=== PATIENT | male | born 1970 | race Caucasian/White ===

== ENCOUNTER 2018-09-22 16:00 | Inpatient (IN) | payer MEDICAID ==
[~2018-09-22] VITALS: Ht 177.8 cm; Wt 71.7 kg
[2018-09-22 16:03] VITALS: BP_SYST 130
[2018-09-22] MEDS ORDERED: NACL 0.9% 1,000 ML IV ONE (16:09)
--- NOTE | 2018-09-22 16:09 | NUR ---
Patient to ER bed 4 to gown for evaluation. Side rails up. Report given to Ishan JARRETT.
--- NOTE | 2018-09-22 16:14 | NUR ---
Patient is awake, alert, and oriented x4. Patient reports drinking whiskey all day and is now complaining of left lower quadrant abdominal pain.
--- NOTE | 2018-09-22 16:14 | NUR ---
ER Dr. Clark at bedside examining patient.
[2018-09-22] MEDS ORDERED: NS 1000 ML IV.SOLN IV ONE (16:15)
[2018-09-22] MEDS ORDERED: ONDANSETRON HCL 4 MG/2 ML VIAL IVP ONE (16:15)
[2018-09-22] MEDS ORDERED: FOLIC ACID 1 MG, THIAMINE HCL 100 MG, MAGNESIUM SULFATE 1 GM, MVI 10 ML in NACL 0.9% 1,... IV ONE (16:15)
[2018-09-22] MEDS ORDERED: MORPHINE 4 MG/ML INJ. SYRINGE IVP ONE (16:15)
[2018-09-22 16:42] LABS: BASOPHILS # (AUTO) 0.1 K/uL (0.0-0.2); EOSINOPHILS # (AUTO) 0.2 K/uL (0.0-0.4); EOSINOPHILS % (AUTO) 2.7 % (0.0-4.0); HEMATOCRIT 38.9 % (36-54); HEMOGLOBIN 13.1 g/dL (14.0-18.0); LYMPHOCYTES % (AUTO) 35.6 % (20.5-51.5); MEAN CORPUSCULAR HEMOGLOBIN 32 pg (27-31); MEAN CORPUSCULAR HGB CONC 34 % (32-36); MEAN CORPUSCULAR VOLUME 94 fL (79.0-98.0); MONOCYTES # (AUTO) 0.5 K/uL (0.0-1.0); MONOCYTES % (AUTO) 8.5 % (1.7-9.3); NEUTROPHILS # (AUTO) 2.9 K/uL (1.8-7.7); NEUTROPHILS % (AUTO) 51.2 % (40.0-70.0); PLATELET COUNT (AUTO) 147 K/uL (130-430); RED BLOOD CELL COUNT(AUTO) 4.14 MIL/uL (4.2-6.2); RED CELL DISTRIBUTION WIDTH 13.7 % (9.0-15.0); WHITE BLOOD COUNT (AUTO) 5.6 K/uL (4.8-10.8)
[2018-09-22 16:50] LABS: CALCIUM 8.8 mg/dL (8.4-11.0); CREATININE 0.9 mg/dL (0.55-1.30); POTASSIUM 3.2 mmol/L (3.5-5.1)
--- NOTE | 2018-09-22 16:50 | NUR ---
Spoke with Silvia in pharmacy, she states she will mix the banana bag.
[2018-09-22 16:52] LABS: METHAMPHETAMINES SCREEN,URINE POSITIVE (NEG <=500); URINE AMPHETAMINE POSITIVE (NEG <=500)
[2018-09-22 16:53] LABS: BARBITURATE, URINE NEGATIVE (NEG <=200); BENZODIAZEPINE, URINE NEGATIVE (NEG <=150); CANNABINOID, URINE NEGATIVE (NEG <=50); COCAINE, URINE NEGATIVE (NEG <=150); OPIATE, URINE NEGATIVE (NEG <=100); PHENCYCLIDINE SCREEN,URINE NEGATIVE (NEG <=25); UR TRICYCLIC ANTIDEPRESSANTS NEGATIVE (NEG <=300); URINE METHADONE NEGATIVE (NEG <=200); URINE OXYCODONE SCREEN NEGATIVE (NEG <=100); URINE PROPOXYPHENE SCREEN NEGATIVE (NEG <=300)
--- NOTE | 2018-09-22 16:58 | NUR ---
Patient to be transferred by [facility]. ETA [id number]. Called Christine in [facility] and informed her.
[2018-09-22 17:02] LABS: TOTAL BILIRUBIN 1.4 mg/dL (0.0-1.0)
--- NOTE | 2018-09-22 17:21 | NUR ---
Unable to complete medication reconcilliation. Patient will not respond to questions.
--- NOTE | 2018-09-22 17:28 | NUR ---
Patient will be admitted to care of Dr. Lira. Admitted to medsurg unit. Will go to room 120B. Belongings list completed. Summary report printed. Report will be given at bedside.
--- NOTE | 2018-09-22 17:28 | NUR ---
Report called in to LUIZA Dodge.
[2018-09-22] MEDS: FOLIC ACID 1 MG, THIAMINE HCL 100 MG, MAGNESIUM SULFATE 1 GM, MVI 10 ML in NACL 0.9% 1,... IV SCH (17:30)
[2018-09-22 17:36] VITALS: BP_SYST 109
--- NOTE | 2018-09-22 17:36 | NUR ---
admission: Received from ER on a gurney with the diagnosis of Acute Pancreatitis , Alcohol Intoxication. Patient is asleep when received, too sleepy to answer questions. Safety precautions initiated.
--- NOTE | 2018-09-22 17:44 | NUR ---
Patient transferred to room 120A via [place] with RN, 2 RN students. Bedside report given to LUIZA Flores for continuation of care.
[2018-09-22] MEDS ORDERED: chlordiazePOXIDE HCL 25 MG CAPSULE PO PRN (18:15)
[2018-09-22] MEDS ORDERED: ONDANSETRON HCL 4 MG/2 ML VIAL IVP PRN (18:15)
--- NOTE | 2018-09-22 19:05 | NUR ---
OPENING NOTES RECEIVED PATIENT IN BED ASLEEP. BREATHING UNLABORED ON 02 2LNC. IVF INFUSING ORDERED WITH IV LINE INTACT. BED IN LOWEST LOCKED POSITION. BED ALARM ON. CALL LIGHT WITH IN REACH.
[2018-09-22] MEDS: PANTOPRAZOLE SODIUM 40 MG/VIAL (PROTONIX) IVP SCH (21:26)
--- NOTE | 2018-09-22 21:26 | NUR ---
MED PASS PATIENT DUE MEDICATION GIVEN. NO DISTRESS NOTED.
[2018-09-23 00:25] VITALS: BP_SYST 107
--- NOTE | 2018-09-23 00:30 | NUR ---
ROUNDS PATIENT RESTING IN BED. NO DISTRESS NOTED. VITAL SIGNS STABLE.
[2018-09-23] MEDS ORDERED: THIAMINE HCL 100 MG/ML VIAL ONE (01:13)
[2018-09-23] MEDS ORDERED: MAGNESIUM SULFATE 1 GM/2 ML VIAL ONE (01:13)
[2018-09-23] MEDS ORDERED: FOLIC ACID 5 MG/ML VIAL IV ONE (01:14)
[2018-09-23] MEDS ORDERED: MVI 10 ML VIAL IV ONE (01:14)
[2018-09-23] MEDS: FOLIC ACID 1 MG, THIAMINE HCL 100 MG, MAGNESIUM SULFATE 1 GM, MVI 10 ML in NACL 0.9% 1,... IV SCH ×2 (02:11→07:02)
--- NOTE | 2018-09-23 03:57 | NUR ---
ROUNDS PATIENT RESTING IN BED. BREATHING UNLABORED. IVF INFUSING ORDERED.
--- NOTE | 2018-09-23 05:56 | NUR ---
ROUNDS PATIENT CONDITION UNCHANGED. NO DISTRESS NOTED. CALL LIGHT WITH IN REACH.
[2018-09-23 06:12] LABS: BASOPHILS # (AUTO) 0.1 K/uL (0.0-0.2); BASOPHILS % (AUTO) 1.2 % (0.0-2.0); EOSINOPHILS # (AUTO) 0.2 K/uL (0.0-0.4); HEMATOCRIT 34.9 % (36-54); HEMOGLOBIN 11.6 g/dL (14.0-18.0); LYMPHOCYTES % (AUTO) 23.8 % (20.5-51.5); MEAN CORPUSCULAR HEMOGLOBIN 31 pg (27-31); MEAN CORPUSCULAR HGB CONC 33 % (32-36); MEAN CORPUSCULAR VOLUME 94 fL (79.0-98.0); MONOCYTES # (AUTO) 0.3 K/uL (0.0-1.0); MONOCYTES % (AUTO) 7.9 % (1.7-9.3); NEUTROPHILS # (AUTO) 2.7 K/uL (1.8-7.7); NEUTROPHILS % (AUTO) 63.1 % (40.0-70.0); RED CELL DISTRIBUTION WIDTH 13.8 % (9.0-15.0); WHITE BLOOD COUNT (AUTO) 4.3 K/uL (4.8-10.8)
--- NOTE | 2018-09-23 06:18 | NUR ---
CLOSING NOTES PATIENT RESTING IN BED. NO DISTRESS NOTED. IVF INFUSING CONTINUOUSLY ORDERED WITH IV LINE INTACT. BED IN LOWEST LOCKED POSITION WITH ALARM ON. CALL LIGHT WITH IN REACH.
[2018-09-23 06:40] LABS: CALCIUM 7.4 mg/dL (8.4-11.0); CREATININE 0.46 mg/dL (0.55-1.30); POTASSIUM 3.3 mmol/L (3.5-5.1)
--- NOTE | 2018-09-23 07:15 | NUR ---
Opening Note: Patient in bed resting. Patient denies pain and discomfort. Breathing is even and unlabored with no distress noted. IV banana bag infusing with no signs of infiltration. Safety precautions in place; bed in lowest position, wheels locked, side rails x3, bed alarm activated and call light within reach. No needs at this time. Will continue to monitor.
[2018-09-23 08:36] LABS: PLATELET COUNT (AUTO) 108 K/uL (130-430)
[2018-09-23 08:42] VITALS: BP_SYST 141
[2018-09-23] MEDS: PANTOPRAZOLE SODIUM 40 MG/VIAL (PROTONIX) IVP SCH ×2 (08:43→21:48)
[2018-09-23] MEDS: ENOXAPARIN SODIUM 40 MG/0.4 ML SYRINGE SUBCUT SCH (08:44)
--- NOTE | 2018-09-23 10:37 | NUR ---
Rounds: Patient in bed resting. No distress noted. Will continue to monitor.
--- NOTE | 2018-09-23 11:57 | NUR ---
Rounds: Patient in bed resting. Patient denies pain and discomfort. Breathing is even and unlabored with no distress noted. Morning medications tolerated well. Safety precautions in place; bed in lowest position, wheels locked, side rails x3, bed alarm activated and call light within reach. No needs at this time. Will continue to monitor.
--- NOTE | 2018-09-23 12:25 | NUR ---
SS Notes: EXHAUST TENDER met with pt for DCP assessment and for ETOH. EXHAUST TENDER verified and updated demographic information (address change, cell# [phone] and [place] cell# [phone]). Pt is a 48 y/o man who came in via emergency room for left flank pain. Pt states he has been in the hospital numerous times for "liver pain". 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 Pt states he drinks 8 shots of whiskey a day and has been drinking for 30 years. Pt states he has never been to any detox facilities in the past but is considering detox currently. Pt states he sees a therapist at [facility] due to his depression. Pt denies suicidal ideation and homicidal ideation currently and in the past. Pt states he fights with his everyday because of his drinking problem and does not have a very good relationship with his 13 year old daughter. Pt states his relationship with his family has been strained due to his drinking. Pt states he does not identify anyone as his support system. Pt denies DUI currently but has a history of DUI in the past and pt states he no longer drives. EXHAUST TENDER provided pt with Low-cost Detox referrals and Outpatient Mental Health. EXHAUST TENDER encouraged pt to start calling detox facilities to inquire about their programs; pt agreed. SS will remain available when needed.
--- NOTE | 2018-09-23 14:00 | NUR ---
Rounds: Patient back in bed resting. No distress or SOB noted. Will continue to monitor.
[2018-09-23] MEDS ORDERED: POTASSIUM CHLORIDE 20 MEQ TAB.PRT.SR PO ONE (15:15)
--- NOTE | 2018-09-23 16:11 | NUR ---
Rounds: Patient in bed resting. Patient denies pain and discomfort. Breathing is even and unlabored with no distress noted. K-DUR one time dose given. Safety precautions in place; bed in lowest position, wheels locked, side rails x3, bed alarm activated and call light within reach. No needs at this time. Will continue to monitor.
[2018-09-23 16:23] VITALS: BP_SYST 154
--- NOTE | 2018-09-23 18:24 | NUR ---
Closing Note: Patient in bed resting. Patient denies pain and discomfort. Breathing is even and unlabored with no distress noted. Patient denies anxiety, no signs of agitation noted. IV patent and intact. Safety precautions in place; bed in lowest position, wheels locked, side rails x3, bed alarm activated and call light within reach. All needs met. Will endorse plan of care to NOC, nurse.
--- NOTE | 2018-09-23 19:15 | NUR ---
Opening notes Received report. Patient resting comfortably in bed. No signs of distress noted. Breathing even and unlabored. Patient denies any anxiety, pain, or discomfort at this time. No signs of alcohol withdrawals noted. No needs. Call light with the patient. Safety and seizure precautions in place.
[2018-09-23 20:00] VITALS: BP_SYST 141
--- NOTE | 2018-09-23 21:48 | NUR ---
Medications given. Educated the action and side effects of medications. Patient verbalized understanding and tolerated well. No signs of allergic reaction noted. Ice water provided to patient. No other needs. Call light with the patient. Safety precautions in place.
--- NOTE | 2018-09-23 23:00 | NUR ---
Ambulated to bathroom to void with minimal assist. No signs of distress noted. Patient back in bed. No needs. Call light with the patient. Safety precautions in place.
--- NOTE | 2018-09-24 00:51 | NUR ---
Librium Patient feeling anxious. VSS. PRN librium given. Educated the action and side effects of medication. Patient verbalized understanding and tolerated well. No signs of allergic reaction. No other needs. Call light with the patient. Safety precautions in place.
[2018-09-24 01:21] VITALS: BP_SYST 127
--- NOTE | 2018-09-24 02:38 | NUR ---
Sleeping No signs of distress noted. Breathing even and unlabored. No needs at this time. Call light with the patient. Safety precautions in place.
--- NOTE | 2018-09-24 04:30 | NUR ---
Sleeping No signs of distress noted. Breathing even and unlabored. Call light with the patient. Safety precautions in place.
[2018-09-24 06:36] LABS: BASOPHILS % (AUTO) 0.6 % (0.0-2.0); EOSINOPHILS # (AUTO) 0.2 K/uL (0.0-0.4); EOSINOPHILS % (AUTO) 4.1 % (0.0-4.0); HEMATOCRIT 37.4 % (36-54); HEMOGLOBIN 12.5 g/dL (14.0-18.0); LYMPHOCYTES # (AUTO) 1.2 K/uL (1.0-5.5); LYMPHOCYTES % (AUTO) 23.1 % (20.5-51.5); MEAN CORPUSCULAR HEMOGLOBIN 31 pg (27-31); MEAN CORPUSCULAR HGB CONC 33 % (32-36); MEAN CORPUSCULAR VOLUME 94 fL (79.0-98.0); MONOCYTES # (AUTO) 0.6 K/uL (0.0-1.0); MONOCYTES % (AUTO) 10.7 % (1.7-9.3); NEUTROPHILS # (AUTO) 3.3 K/uL (1.8-7.7); NEUTROPHILS % (AUTO) 61.5 % (40.0-70.0); PLATELET COUNT (AUTO) 116 K/uL (130-430); RED BLOOD CELL COUNT(AUTO) 3.99 MIL/uL (4.2-6.2); RED CELL DISTRIBUTION WIDTH 13.7 % (9.0-15.0); WHITE BLOOD COUNT (AUTO) 5.3 K/uL (4.8-10.8)
[2018-09-24 06:45] LABS: CALCIUM 8.8 mg/dL (8.4-11.0); CREATININE 0.64 mg/dL (0.55-1.30); POTASSIUM 3.5 mmol/L (3.5-5.1)
--- NOTE | 2018-09-24 06:51 | NUR ---
Closing notes Patient asleep in bed. No signs of distress noted. Breathing even and unlabored. IV patent and intact, no signs of infiltration noted. All needs met throughout the shift. Call light with the patient. Safety precautions in place. Will endorse care to day shift RN.
--- NOTE | 2018-09-24 07:52 | NUR ---
Opening Note Report received from [facility] shift nurse. Patient is currently resting in bed. No signs of acute ETOH withdrawals noted. IV is on the LAC 18g, SL. Seizure precautions are in place. Call light is within reach and bed is in the lowest position. Will continue to monitor.
[2018-09-24 08:08] VITALS: BP_SYST 149
[2018-09-24] MEDS ORDERED: FOLIC ACID 1 MG, THIAMINE HCL 100 MG, MAGNESIUM SULFATE 1 GM, MVI 10 ML in NACL 0.9% 1,... IV SCH (09:00)
--- NOTE | 2018-09-24 09:33 | NUR ---
Nutrition Update Aly Scale 18 noted. Pt admitted for acute pancreatitis, alcohol intoxication. Diet: clear liquid BMI: 22.7 kg/m2 RD to follow per nutrition care standards.
[2018-09-24] MEDS: PANTOPRAZOLE SODIUM 40 MG/VIAL (PROTONIX) IVP SCH (09:35)
[2018-09-24] MEDS: ENOXAPARIN SODIUM 40 MG/0.4 ML SYRINGE SUBCUT SCH (09:36)
--- NOTE | 2018-09-24 10:03 | NUR ---
Rounds Started the patient on scheduled a banana bag per MD order.
[2018-09-24 11:42] VITALS: BP_SYST 123
--- NOTE | 2018-09-24 12:05 | NUR ---
Rounds Patient is currently having lunch in bed.
--- NOTE | 2018-09-24 12:24 | NUR ---
Application Coordinator Note STRIP MILL OPERATOR received a call from Leydi LEVINE. Patient told her his , Tawny, had questions and wanted to be called, . STRIP MILL OPERATOR noted that patient was seen by Application Coordinator yesterday and given resources. Phoned Tawny. She wanted to speak with the Attending MD to discuss patient's liver condition. STRIP MILL OPERATOR notified Malia JARRETT of the request. She was aware.
--- NOTE | 2018-09-24 14:02 | NUR ---
Rounds Patient is currently resting in bed. Call is within reach.
--- NOTE | 2018-09-24 14:02 | NUR ---
Dietitian Recommendations * Recommend continuing clear liquid diet LP, RD Please refer to Nutrition Assessment for details.
--- NOTE | 2018-09-24 16:21 | NUR ---
RN Note Patient has been provided with alcohol and drug rehabilitation information by JUANITO Eller. Patient verbally reported that he understands the information.
[2018-09-24 16:33] VITALS: BP_SYST 123
--- NOTE | 2018-09-24 16:56 | NUR ---
Transition of care Patient given medication reconciliation form and D/C instructions. Exit Care provided. Patient verbalized understanding. MD discussed with patient the results and treatment provided. Ambulatory with steady gait for discharge to home. Patient in stable condition, ID band removed. IV catheter removed, intact and dressing applied, no active bleeding. Patient educated on pain management. All belongings sent with patient.
== END 2018-09-24 16:56 | disposition home or self-care (01) | DRG 775 ==
LOC: SED 16:00 → SMU 17:23 → STU 17:44 → SMU 17:45 → STU 19:08 → SMU 09-23 16:14
PROVIDERS: ADMIT Family Medicine; ATTEND Family Medicine
DX: F10.129 Alcohol abuse with intoxication, unspecified (principal); F15.10 Other stimulant abuse, uncomplicated; I10 Essential (primary) hypertension
CPT/HCPCS: 36415; 71045; 80048; 80053; 80307; 82150-TC; 83605; 83690-TC; 83735-TC; 84484; 85025; 85610-TC; 85730-TC; 87040-TC; 93005; 96361; 96365; 96366; 96375; 99285; C9113; G0378; G0482; J1650; J2270; J2405; J3411; J3475; J3490; J7030